=== PATIENT | female | born 1950 | race African-American/Black ===

== ENCOUNTER → 2016-10-17 | Outpatient (CLI) | payer BC ==
--- NOTE | ~2016-10-17 | US128 ---
[id number] [facility] [address] [facility] [address] [place]. [place], [place] [address] [id number] O MR#: [id number] #: [id number] NAME: ROSANA FOOTE : 1950 SEX: F STUDY DATE/TIME: 10/17/2016 13:39 UNIT: CGUS ROOM: STUDY DESCRIPTION: Thyroid Attending Physician: Huma Wilde M.D. Referring Physician: Huma Wilde M.D. Ordering Physician: Huma Wilde M.D. Primary Care Physician: Krysten Mendiola M.D. MEDICAL IMAGING REPORT This report is preliminary unless electronic signature is present EXAM Ultrasound of the thyroid gland. INDICATIONS Multinodular goiter. TECHNIQUE Encarnacion-scale and color Doppler sonographic images were obtained through the thyroid gland. Please note thyroid nodules were initially identified in December 2014 and were located bilaterally. FINDINGS The thyroid gland is enlarged, right lobe measures 2.8 x 5.2 x 2.9 cm, left lobe measures 3.2 x 5.4 x 2.3 cm and isthmus measures about 3 mm in thickness. Multiple thyroid nodules are again noted. There are two identified within the right lobe. The one located within the superior pole of the right lobe measures 1.5 x 1.5 x 1.4 cm. A second nodule is seen inferior to it, which measures up to 3.5 x 2.6 x 2.9 cm. This does appear to have increased in size when compared to the exam from December 2014. This nodule has been previously sampled and correlation with those biopsy results is suggested. Two additional nodules are seen within the left lobe of the thyroid gland. There is a 3.3 x 2.8 x 1.9 cm nodule which I do not think has significantly changed when compared to December 2014 and a second nodule is seen inferior to it measuring 2.3 x 2.1 x 2.8 cm, again not significantly changed when compared to the prior examination. Filler And Trimmer also measures an area straddling the isthmus measuring up to 2.1 x 0.8 x 2.0 cm, which I suspect was probably present in December 2014 but was not measured as a discrete nodule, so it is difficult to accurately compare it to prior studies but it was again favored to be present on the prior exam. IMPRESSION 1. Patient is again noted to have an enlarged gland with multiple nodules characteristic of a multinodular goiter. Two nodules within the left lobe of the thyroid gland are stable when compared to prior studies, as is a nodule within the right lobe of the thyroid gland. There is a nodule within the inferior pole of the right lobe of the thyroid gland which has increased in size when compared to December 2014, but it has been previously sampled and correlation with those biopsy results is recommended. 2. Patient does have a nodule straddling the isthmus. This actually probably was present on prior examinations but was not measured as a discrete nodule. I suspect it is probably benign but given size criteria, it could probably be considered for percutaneous sampling. Dictated by... Jessika Rod M.D. THIS IS AN ELECTRONICALLY VERIFIED REPORT Jessika Rod M.D. at 10/19/2016 11:21 AM AFF/yasmine TD: 10/17/2016 21:37 JOB #: [id number] MEDICAL IMAGING REPORT Page 1 of 1 COPY
== END | disposition home or self-care (01) ==
LOC: CGUS 12:45
DX: E04.2 Nontoxic multinodular goiter (principal)
CPT/HCPCS: 76536

== ENCOUNTER → 2016-12-28 | Outpatient (CLI) | payer OTHER ==
--- NOTE | ~2016-12-28 | MY29 ---
[facility] A Service of [facility] RADIOLOGY TEXT RESULTS PATIENT: ROSANA FOOTE LOCATION: [facility] : 50 UNIT #: [id number] AGE: [address]: Krysten Mendiola MD SEX: F ORDER DR: [id number] [facility] [address] [place], [place] [address] [id number] O MR#: [id number] Acc #: [id number] NAME: ROSANA FOOTE : 1950 SEX: F STUDY DATE/TIME: 12/28/2016 10:03 UNIT: [facility] ROOM: STUDY DESCRIPTION: [facility] SCREENING W/ CAD BILAT Attending Physician: Krysten Mendiola M.D. Referring Physician: Krysten Mendiola M.D. Ordering Physician: Krysten Mendiola M.D. Primary Care Physician: Krysten Mendiola M.D. MEDICAL IMAGING REPORT This report is preliminary unless electronic signature is present EXAM Bilateral digital screening mammogram with CAD, 12/28/2016 INDICATION 66-year-old female for routine screening. No reported problems and no personal or family history of breast cancer. No surgeries. TECHNIQUE CC and MLO views of the breasts were obtained and reviewed with an FDA-approved CAD device. COMPARISON 12/28/2015, 12/30/2014 FINDINGS Breast parenchyma is composed of scattered fibroglandular densities. The pattern is unchanged. There is no new dominant nodule or mass in either breast. No new suspicious cluster of microcalcifications. Benign calcifications are present bilaterally. Prominent vessels and benign intramammary nodes are present bilaterally. There has been no significant interval change for technical factors. IMPRESSION Benign screening mammogram. One year follow-up recommended. Patients over the age of 40 are entered into a reminder system with target due date for the next mammogram. A result letter will also be sent to the patient. BIRADS: 2 Benign Finding Dictated by... Roddy Mejia M.D. [facility] A Service of [facility] RADIOLOGY TEXT RESULTS PATIENT: ROSANA FOOTE LOCATION: [facility] : 50 UNIT #: [id number] AGE: [address]: Krysten Mendiola MD SEX: F ORDER DR: THIS IS AN ELECTRONICALLY VERIFIED REPORT Roddy Mejia M.D. at 12/28/2016 4:24 PM Delores TD: 12/28/2016 13:08 JOB #: [id number] MEDICAL IMAGING REPORT Page 1 of 1 COPY
== END | disposition home or self-care (01) ==
LOC: CWCC 09:15
DX: Z12.31 Encounter for screening mammogram for malignant neoplasm of breast (principal)
CPT/HCPCS: G0202